=== PATIENT | male | born 1955 | race Caucasian/White ===

== ENCOUNTER 2019-01-26 15:12 | Emergency (ER) | payer OTHER, SELFPAY ==
[2019-01-26 15:23] VITALS: BP 108/86; PULSE 86; RESP 38; TEMP 36.8; O2SAT 98
--- NOTE | 2019-01-26 15:44 | ED.GENADUL_ITS ---
Discharge Plan Disposition Patient Disposition: HOME Condition: Improving Discharge Details Chief Complaint: Abd Prob Clinical Impression: Urinary tract infection Primary Care Provider: Cookie,Local ED Provider: Brian Flood Home Meds and New Rx's Prescriptions: New sulfamethoxazole-trimethoprim [Bactrim DS] 800-160 mg tablet 1 tab PO BID 10 Days Qty: 14 RF: 0 Continued citalopram 20 mg Tablet 20 mg PO DAILY RF: 0 zolpidem [Ambien] 5 mg Tablet 5 mg PO HS PRNRF: 0 Discharge Instructions Instructions: Urinary Tract Infection in Men (ED) Additional Instructions: Home to rest today. Small, frequent sips of fluids so that you maintain hydration and good urine output. We have sent your urine to the laboratory for culture and will call you if there needs to be a change in the antibiotic regimen. I recommend, as we discussed, to follow-up with urology upon return to your home in [place]. Most health systems would have this accomplished through a referral from your primary care physician. Return or see nearest healthcare facility if you develop urinary retention, fever, or any other acute concerns. Continue all of your regular medications. Medical Decision Making 63-year-old male presents from his home environment with his with the abrupt onset of midline lower abdominal/pelvic pain this morning at 9 AM. Is constant, unremitting, and he is not been able to urinate. He arrives with temp of 36.8, blood pressure 108/86, pulse 86. His abdominal exam is reassuring without evidence of peritonitis. He has a history of urinary frequency and nocturia, previous U urinary tract infection. High likelihood of mild prostatitis. Patient does have a long-standing use of benzodiazepines. He was given Toradol and 0.5 mg of Ativan with improvement/resolution of discomfort. His laboratories reveal a slightly elevated white blood cell count of 13, BUN 19 with a creatinine 1.3. Chemistries otherwise notable for sodium 135, potassium 3.3. Urinalysis with positive leuk esterase, 10-20 white blood cells. Culture pending. Consistent with UTI, possible prostatitis. Towards the end of the patient's stay, he did spike a fever which was treated with acetaminophen. We will treat with 10 days of Bactrim as he takes citalopram and therefore would avoid fluoroquinolones. Discussed side effects of the medication as well as anticipated course of resolution of illness with the patient. HPI General Mode of arrival: ambulatory . Date/Time Provider Initiated Documentation: 01/26/19 15:20 . Limitations to Documentation: no limitations . Information obtained by: patient and family . History of Present Illness 63 year old M presents to the emergency department with the chief complaint of Lower abdominal pain since 9 AM, described as moderate and severe, Quality is described as dull and constant, and is localized to the pelvis. Patient reports no radiation. Patient started experiencing this hour(s) and it has been constant. No relieving factors improve symptom(s), No exacerbating factors reported . Patient notes denies fever/chills and nausea/vomiting. Patient did receive the following treatments prior to arrival, none Related Data Home Medications Medication Instructions Recorded Confirmed citalopram 20 mg PO DAILY 01/26/19 01/26/19 sulfamethoxazole-trimethoprim 1 tab PO BID 10 Days #14 tab 01/26/19 [Bactrim DS] zolpidem [Ambien] 5 mg PO HS PRN 01/26/19 01/26/19 Previous Rx's Medication Instructions Recorded sulfamethoxazole-trimethoprim 1 tab PO BID 10 Days #14 tab 01/26/19 [Bactrim DS] Allergies Allergy/AdvReac Type Severity Reaction Status Date / Time No Known Allergies Allergy Unverified 01/26/19 15:25 General Stated Complaint: Abd Prob DOUG: 3 Review of Systems Narrative: 6 systems reviewed and otherwise negative. No fall or trauma. No fever. States history of urinary tract infections in the past. Has long- standing urinary hesitancy and incomplete voiding. [facility] Social History Smoking/Tobacco Use Status: Never Alcohol Intake: never Drug use: Never Substance use type: does not use Do you feel safe at home: Yes Do you feel safe in your relationship?: Yes Exam Narrative Exam Narrative: GEN: awake, alert, oriented 3. In distress but pleasant, well groomed, interactive. HEAD: Normocephalic, atraumatic ENT: Mucous membranes moist, oropharynx unremarkable, External ear exam unremarkable EYES: PERRL, EOMI NECK: Full ROM, no BEN, no menigismus CHEST/RESP: Nontender, clear to auscultation bilateral, no wheeze/rhonchi/rales CARDIOVASCULAR: RRR, no murmur, rub tyrone. 2+ Rad pulse bilateral ABDOMEN: Soft, left greater than right lower abdominal tenderness to palpation, no mass. +Bowel sounds EXT: Full ROM, no edema, no rash Neuro: Grossly normal neurologic exam, conversant, interactive. Psych: Speech fluent, thoughts congruent, affect normal Course Vital Signs Vital signs: Vital Signs Temperature 36.8 C 01/26/19 15:23 Pulse 86 01/26/19 15:23 Respiratory Rate 38 H 01/26/19 15:23 Blood Pressure 108/86 01/26/19 15:23 Pulse Oximetry 98 01/26/19 15:23 Temperature 36.8 C 01/26/19 15:23 Temperature Source Temporal Artery Scan 01/26/19 15:23 Pulse 86 01/26/19 15:23 Respiratory Rate 38 H 01/26/19 15:23 Respiratory Effort 01/26/19 15:23 Blood Pressure 108/86 01/26/19 15:23 Pulse Oximetry 98 01/26/19 15:23 Oxygen Delivery Method Room Air 01/26/19 15:23 Oxygen Flow Rate 0 01/26/19 15:23 Pain Level 9 01/26/19 15:31
[2019-01-26] MEDS: LORazepam 2 MG/ML VIAL 0.5 MG IVP (15:49)
[2019-01-26] MEDS: Ketorolac 15 MG/ML VIAL IVP (15:51)
[2019-01-26] MEDS: Normal Saline 1,000 ML 125 ML IV (15:51)
[2019-01-26 16:06] LABS: Abs Immature Grans 0.03 k/cumm (0.0-0.09); Absolute Basophil Count 0.01 k/cumm (0.0-0.2); Absolute Eosinophil Count 0.04 k/cumm (0.0-0.7); Absolute Monocyte Count 0.94 k/cumm (0.11-0.7); Absolute Neutrophil Count 11.16 k/cumm (1.2-6.7); Basophils % 0.1; Eosinophils % 0.3; HCT 38.8 % (40.0-50.0); Immature Grans % 0.2; Lymphocytes % 7.6; Mean Corp. HGB Concentration 33.5 g/dL (32.0-36.0); Mean Corpuscular Hemoglobin 30.2 pg (27.0-33.0); Mean Corpuscular Volume 90.2 fL (80-95); Mean Platelet Volume 9.4 fL (8.0-11.0); Monocytes % 7.1; Neutrophils % 84.7; Platelet Count 241 x1000/uL (130-400); RBC Distribution Width 12.7 % (11.8-14.1); White Blood Cell Count 13.18 k/cumm (4.4-10.8)
[2019-01-26 16:18] LABS: ALT 35 U/L (16-63); AST 28 U/L (15-37); Albumin 3.9 g/dL (3.4-5.0); Alkaline Phosphatase 63 U/L (46-116); Anion Gap 13.7 mmol/L (3-11); BUN 19 mg/dL (7-18); CO2 22.3 mmol/L (21.0-32.0); CREATININE 1.34 mg/dL (0.70-1.30); Calcium 8.9 mg/dL (8.5-10.1); Chloride 99 mmol/L (98-107); Estimated GFR 54.19 (mL/min/1.73m2); Glucose 130 mg/dL (70-100); Potassium 3.3 mmol/L (3.5-5.1); Sodium 135 mmol/L (136-145); Total Protein 7.5 g/dL (6.4-8.2)
[2019-01-26 17:10] LABS: Bilirubin Negative (Negative); Blood Negative (Negative); Clarity Clear (Clear); Glucose Negative (Negative); Ketones 15 mg/dL (Negative); Leukocyte Esterase Trace (Negative); Nitrite Negative (Negative); Urobilinogen 0.2 EU/dL (Up TO 0.2)
[2019-01-26 17:26] LABS: Bacteria Negative HPF (Negative); C & S Indicated? Yes; Casts Negative LPF (Negative); Crystals Few Amorphous HPF (Negative); Epithelial Cells Negative HPF (Negative); Mucus Negative (Negative); Other Cells Negative (Negative); RBC 0-2 (0-2)
[2019-01-26] MEDS: Sulfameth/Trimeth DS TAB 1 TAB PO (17:45)
[2019-01-26 18:09] VITALS: TEMP 39.7
[2019-01-26] MEDS: Acetaminophen 500 MG TAB 1000 MG PO (18:09)
[2019-01-26 18:13] VITALS: BP 114/58; PULSE 100; RESP 26; TEMP 39.7; O2SAT 97
== END 2019-01-26 18:11 | disposition home or self-care (01) ==
PROVIDERS: Emergency Provider Emergency Medicine; PCP Family Medicine
DX: N39.0 Urinary tract infection, site not specified (principal); Z87.442 Personal history of urinary calculi
CPT/HCPCS: 36415; 80053; 96361; 96374; 96375; 99284; 81003; 81015; 85025; 87086; J1885; J2060